=== PATIENT | female | born 1965 | race Caucasian/White ===

== ENCOUNTER 2017-08-28 12:32 | Day surgery (SDC) | payer OTHER ==
[~2017-08-28] VITALS: Ht 167.6 cm; Wt 67.0 kg
[~2017-08-28 12:32] MED LIST: LIDOCAINE HCL 1% PF 5 ML SYRINGE OTHER ONE; PROPOFOL 200 MG/20 ML AMP IV ONE
[2017-08-28] MEDS ORDERED: CHLORHEXIDINE GLUCONATE 2 % 1 PACK (2 CLOTHS) TOPICAL SCH (13:00)
[2017-08-28] MEDS ORDERED: SODIUM CHLORID 0.9% 500 ML IV PRN (13:00)
[2017-08-28] MEDS ORDERED: VANCOMYCIN 1000 MG/NS 250 ML IV SCH ×2 (13:00)
[2017-08-28] MEDS ORDERED: NO Heparin, Lovenox, Coumadin at least 12 hours prior to procedure. PRN (13:00)
[2017-08-28] MEDS ORDERED: CHLORHEXIDINE GLUCONATE 2 % 1 PACK (2 CLOTHS) TOPICAL PRN (13:00)
[2017-08-28] MEDS ORDERED: LORazepam 1 MG TAB SL SCH (13:00)
[2017-08-28] MEDS ORDERED: POVIDONE IODINE 5% (ANTISEPSIS KIT) 4 APPLICATIONS EACH NARE SCH (13:00)
[2017-08-28] MEDS ORDERED: INSULIN HUMAN REGULAR 1,000 UNITS/10 ML VIAL SQ PRN (13:00)
[2017-08-28] MEDS ORDERED: POVIDONE IODINE 5% (ANTISEPSIS KIT) 4 APPLICATIONS EACH NARE PRN (13:00)
[2017-08-28] MEDS ORDERED: Hold AM Insulin & AM Hypoglycemic medications in diabetic patients PRN (13:00)
[2017-08-28] MEDS ORDERED: LACTATED RINGER'S 1000 ML IV PRN (13:00)
[2017-08-28] MEDS ORDERED: NS 1000 ML IV SCH (13:00)
[2017-08-28] MEDS ORDERED: MUPIROCIN 2% OINT 1 APPLIC/GM SYR NASAL SCH (13:00)
[2017-08-28] MEDS ORDERED: METOPROLOL TARTRATE 25 MG TAB PO PRN (13:00)
[2017-08-28 13:19] VITALS: BP 117/82; PULSE 82; RESP 18; TEMP 97.9; O2SAT 96
[2017-08-28] MEDS ORDERED: LEVO88TA2 PO (13:38)
[2017-08-28] MEDS ORDERED: MONT10TA2 PO (13:38)
[2017-08-28] MEDS ORDERED: FLUT1INH INH (13:38)
[2017-08-28] MEDS ORDERED: PRED1 PO (13:38)
[2017-08-28 13:44] LABS: AUTOMATED NEUTROPHIL # 10.2 TH/MM3 (1.8-7.7); BASOPHIL % 0.2 % (0.0-2.0); HEMATOCRIT 40.1 % (35.0-46.0); HEMOGLOBIN 13.2 GM/DL (11.6-15.3); LYMPH % 11.6 % (9.0-44.0); LYMPHOCYTE # 1.4 TH/MM3 (1.0-4.8); MEAN CELL VOLUME 81.6 FL (80.0-100.0); MEAN CORPUSCULAR HGB CONC 33.1 % (32.0-36.0); MEAN PLATELET VOLUME 7.8 FL (7.0-11.0); MONO % 2.3 % (0.0-8.0); MONOCYTE # 0.3 TH/MM3 (0-0.9); NEUT % 85.9 % (16.0-70.0); PLATELET COUNT 293 TH/MM3 (150-450); RED BLOOD COUNT 4.91 MIL/MM3 (4.00-5.30); RED CELL DISTRIBUTION WIDTH 16.3 % (11.6-17.2); WHITE BLOOD COUNT 11.8 TH/MM3 (4.0-11.0)
[2017-08-28 13:45] LABS: INTERNATIONAL NORMALIZED RATIO 1.1 RATIO; PROTHROMBIN TIME - PATIENT 10.7 SEC (9.8-11.6)
[2017-08-28] MEDS ORDERED: CEFAZOLIN INJ 2,000 MG in SODIUM CHLORIDE 0.9% INJ 100 ML IV SCH (14:00)
[2017-08-28 14:07] LABS: BICARBONATE 25.9 MEQ/L (21.0-32.0); CALCIUM 9.2 MG/DL (8.5-10.1); CREATININE 0.85 MG/DL (0.50-1.00)
[2017-08-28] MEDS ORDERED: HEPARIN-NS/PF INJ 1,000 ML ONE (14:17)
[2017-08-28] MEDS ORDERED: DOXY100C PO (14:26)
[2017-08-28] MEDS ORDERED: PRED10 PO (14:27)
[2017-08-28] MEDS ORDERED: HEPARIN SODIUM - IV 10,000 UNITS/10 ML VIAL ONE (15:09)
[2017-08-28] MEDS ORDERED: MIDAZOLAM HCL 2 MG/2 ML VIAL ONE (15:31)
--- NOTE | 2017-08-28 15:50 | CATHPROC ---
Patient Name: RONY PRATER Study #: [id number] Initial MD: Mercedez Berry Date of : 1965 Study Date: 08/28/2017 Cardiac Catheterization Report 08/28/2017 3:50:00 PM Financial #: [id number] 1 of 9 Patient Name: RONY PRATER Study #: [id number] Initial MD: Mercedez Berry Date of : 1965 Study Date: 08/28/2017 Entire Case Report Patient Information Patient Name RONY PRATER Date of 1965 Age 51 years Financial # [id number] Gender F AlternateID Lab Number 6 Room Number DC07 Height (in) 66.0 Height (cm) 167.6 BSA 1.76 Weight (lbs) 148.1 Weight (kg) 67.3 Patient Address/Phone Number Home Address [facility] Home Phone Number [facility] [address] Study Information Study Number Admission Scheduled Start Study Start [id number] Aug 28 2017 12:32PM 08/28/2017 Aug 28 2017 1:26PM [place] Service Cardiac Pacer/ICD Admit Source Facility Department Other [facility] - [facility] Physician and Clinical Staff Initial Mercedez Gupta Quality Improvement Specialist Tara Cool,RT(R) TECH2 Quality Improvement Specialist Sommer Smith RN Other Anesthesia, MANAGER STORAGE Recorder Sommer Smith RN Scrub Rosaura Pantoja,SALT LIFTER TECH2 Procedures Performed Procedure Location (Site) Vessel Name Venogram RV Ventricle Wire insertion Fem Vein (right) Femoral Vein 08/28/2017 3:50:00 PM Financial #: [id number] 2 of 9 Patient Name: RONY PRATER Study #: [id number] Initial MD: Mercedez Berry Date of : 1965 Study Date: 08/28/2017 Equipment Time Risk Control Consultant Description Size Mfg Part Number Used/Scraped Miroi [id number] 13:27 SET, TUBING COOLFLOW * Used INC. *[id number] 13:26 COOK/PACER DILATOR SET (MICRA) FR8-12 Used *[id number] WIRE, GUIDE AMPLATZ STIFF [id number] 13:26 COOK/PACER 3MMJ Used 180CM *[id number] 13:26 MEDLINE INDUSTRIES PACK, CCL CUSTOM * Used *[id number] 13:26 MEDLINE PACER STARR, LIMB * 2530 *[id number] Used [id number] 13:26 NAMIC TUBING, HIGH PRESSURE 20" 20" Used *[id number] 13:26 NAMIC TUBING, HIGH PRESSURE 20" 20" Used *[id number] 13:26 NYCOMED OMNIPAQUE, 300 MG, 50ML 50ML [id number] Used 14:22 NYCOMED OMNIPAQUE, 300 MG, 50ML 50ML [id number] Used 14:22 NYCOMED OMNIPAQUE, 300 MG, 50ML 50ML [id number] Used SUTURE, 0 ETHIBOND [CT1] (CX21D), 8pk [id number] 13:26 ADEN MEDICAL BLANKET,WARM AIR CCL * Used *[id number] 13:26 VITATRON MEDTRONIC MONITOR, PACEMAKER\\ICD 59335G Used [id number] 13:28 VITATRON MEDTRONIC SHEATH, INTRODUCER (MICRA) Used *[id number] SYSTEM, TRANS-CATHETER [id number] 13:26 VITATRON MEDTRONIC Used PACING (MICRA) *[id number] Insurance Information Insurance Payor Private Health Insurance Third Republican Third Republican Number AETNA - HMO [facility] Labs Hgb (g/dl) Hct (%) RBC (MIL/MM3) WBC (l/cumm) Platelets (thousands) 11.60-17.00 35.00-51.00 4.00-5.90 4.00-11.00 150.00-450.00 13.0 40 13 4 293 Glucose (mg/dl) BUN (mg/dl) Creatinine (mg/dl) BUN:Creatinine (1:x) 74.00-106.00 7.00-18.00 0.50-1.30 10.00-20.00 110 11 0.8 13.8 Na (meq/l) K (meq/l) 136.00-145.00 3.50-5.10 138 3.8 08/28/2017 3:50:00 PM Financial #: [id number] 3 of 9 Patient Name: RONY PRATER Study #: [id number] Initial MD: Mercedez Berry Date of : 1965 Study Date: 08/28/2017 INR (PTT:PT) 0.90-1.10 1.1 Medication Medication Total Dose (Bolus/Oral) Medication Total Dosage/Unit 2% XYLOCAINE 100 mL HEPARIN 3000 units Medications (Bolus/Oral) Medication Time Given Dosage/Unit Administered By Reason 2% XYLOCAINE 08/28/2017 3:03:33 PM 50 mL Mercedez Berry 50 mL 2% XYLOCAINE given in lab by Mercedez Berry in Right Groin via Subcutaneous. Ordered by Chioma Berry. HEPARIN 08/28/2017 3:08:43 PM 3000 units Anesthesia, MANAGER STORAGE As per physicians bronson bal order 3000 units HEPARIN given in lab by Anesthesia, MANAGER STORAGE via Peripheral IV. Ordered by Mercedez Berry. Reas on: As per physicians verbal order. 2% XYLOCAINE 08/28/2017 3:28:02 PM 50 mL Mercedez Berry 50 mL 2% XYLOCAINE given in lab by Mercedez Berry in Left upper chest via Subcutaneous. Medication (Drip) Medication Time Given Dosage/Unit Concentration/Unit Diluent (ml) Solution ANCEF 08/28/2017 3:00:40 PM 2 g 2 g ANCEF given in lab by Anesthesia, MANAGER STORAGE via Peripheral IV. Ordered by Mercedez Berry. Reason: As pe r physicians verbal order. VANCOMYCIN DRIP 08/28/2017 3:00:00 PM 1 g 1 g VANCOMYCIN DRIP given in lab by Anesthesia, MANAGER STORAGE via Peripheral IV. Ordered by Mercedez Berry. Yecenia son: As per physicians verbal order. 08/28/2017 3:50:00 PM Financial #: [id number] 4 of 9 Patient Name: RONY PRATER Study #: [id number] Initial MD: Mercedez Berry Date of : 1965 Study Date: 08/28/2017 Initial Case Assessment Cardiovascular HR Rhythm NIBP Chest Pain 72 sr 114/68 0 Edema Present Skin color Skin None Normal Warm Dry Circulatory - Right Pulses Dorsalis Pedis 3 Scale (0,1,2,3,4,d) Circulatory - Left Pulses Dorsalis Pedis 3 Scale (0,1,2,3,4,d) Circulatory - Lower Extremities Color Lower Right Color Lower Left Normal Normal Neurological State Oriented to time-place- Alert Moves all extremities person Respiration - General Respiration Rate SpO2 (%) (B/min) 18 99 08/28/2017 3:50:00 PM Financial #: [id number] 5 of 9 Patient Name: RONY PRATER Study #: [id number] Initial MD: Mercedez Berry Date of : 1965 Study Date: 08/28/2017 Final Case Assessment Cardiovascular HR Rhythm NIBP Chest Pain 65 sr 132/75 0 Edema Present Skin color Skin None Normal Warm Dry Circulatory - Right Pulses Dorsalis Pedis 3 Scale (0,1,2,3,4,d) Circulatory - Left Pulses Dorsalis Pedis 3 Scale (0,1,2,3,4,d) Circulatory - Lower Extremities Color Lower Right Color Lower Left Normal Normal Neurological State Oriented to time-place- Alert Moves all extremities person Respiration - General Respiration Rate SpO2 (%) O2 (lpm) (B/min) 16 100 4 Chronological Log Time Study Chronological Log 14:05:10 Patient arrived via Bed. 14:05:11 Patient Name, D.O.B, / Armband Verified By R.N. 14:05:12 Consent signed by the physician and the patient and verified by the [facility] staff. 14:05:13 Pre-op and post- op instructions given; patient acknowledges understanding of instructions. 14:05:14 Verbal Stimulation=2 Physical Stimulation=2 Airway=2 Respiration=2 TOTAL=8. (0=absent, 1=li mited, 2=present) 14:05:15 Anesthesia at bedside. Assumes care of patient. Madeleine 14:05:45 Patient has been NPO for More than 6Hrs. 14:05:47 Skin Breakdown- none per pt 14:05:52 Patient Warmer Placed on the Table. 08/28/2017 3:50:00 PM Financial #: [id number] 6 of 9 Patient Name: RONY PRATER Study #: [id number] Initial MD: Mercedez Berry Date of : 1965 Study Date: 08/28/2017 14:05:53 Disposable Defibrillator Pads Placed On Patient. 14:05:55 Estefania Prominences Protected 14:05:56 A # 20 IV was noted in the Antecubital (right). Grade = 0 0.9ns kvo 14:05:57 A # 20 IV was noted in the Antecubital (left). Grade = 0 0.9ns kvo 14:06:20 History and physical on the chart or being dictated. 14:13:33 Table restraints applied according to hospital policy 14:15:53 Bilateral groins prepped with 2% chlorhexidine, and draped after a 3 minute waiting time. 14:17:17 Medtronic rep present. Assessment: Initial Case, HR=72 BPM, Rhythm=sr, FNMK=487/68 mmhg, Chest Pain=0, Edema=None, Col or=Normal, Skin = Warm, Dry Right Pulses: Jaziel Ped=3 Left Pulses: Jaziel Ped=3 14:19:00 Lower Right Extremities: Color=Normal Lower Left Extremities: Color=Normal Neurological: State=Alert, Ox3, BOWER Respiration: Resp=18 B/min, SpO2=99 % 14:24:37 Reference ECG taken 14:27:56 MD paged 14:59:50 MD arrived. 1 g VANCOMYCIN DRIP given in lab by Anesthesia, MANAGER STORAGE via Peripheral IV. Ordered by Eugenio Berry Reason: As per 15:00:00 physicians verbal order. 2 g ANCEF given in lab by Anesthesia, MANAGER STORAGE via Peripheral IV. Ordered by Mercedez Berry. Reason: As per physicians 15:00:40 verbal order. Time Out. Correct patient, procedure, procedure equipment, site and side verified with physicia n present. Time 15:03:04 concurred by MD, individual staff and MANAGER STORAGE. Time Out #2 - Consents verified, patient in correct position, all results are labled and displa yed, safety precautions 15:03:26 taken, antibiotics administered. Time out concurred by , individual staff and MANAGER STORAGE in procedu re 15:03:27 Case Start 15:03:33 50 mL 2% XYLOCAINE given in lab by Mercedez Berry in Right Groin via Subcutaneous. Ordered b Mercedez Barreto. 15:04:19 Vascular access was obtained in the Subclav. Vein (Rt). 15:04:22 Wire inserted 15:04:30 A WIRE, GUIDE AMPLATZ STIFF 180CM 3MMJ was inserted via Fem Vein (right). 15:07:14 Figure 8 knot using Ethibond placed by MD to RFV. 3000 units HEPARIN given in lab by Anesthesia, MANAGER STORAGE via Peripheral IV. Ordered by Mercedez Berry . Reason: As per 15:08:43 physicians verbal order. 15:10:21 A DILATOR SET (MICRA) FR8-12 was advanced into the Fem Vein (right) using the Modified Seld gayathri technique. 8 15:10:38 A DILATOR SET (MICRA) FR8-12 was advanced into the Fem Vein (right) using the Modified Seld gayathri technique. 12 15:10:50 A DILATOR SET (MICRA) FR8-12 was advanced into the Fem Vein (right) using the Modified Seld gayathri technique. 16 15:11:00 A DILATOR SET (MICRA) FR8-12 was advanced into the Fem Vein (right) using the Modified Seld gayathri technique. 20 15:11:38 A SHEATH, INTRODUCER (MICRA) was advanced into the Fem Vein (right) using the Modified Seld gayathri technique. 15:11:50 Wire out 15:13:04 Dilator and wire removed. Heparin gtt attached to introducer. 15:13:45 Micra device prepped and set up. 08/28/2017 3:50:00 PM Financial #: [id number] 7 of 9 Patient Name: RONY PRATER Study #: [id number] Initial MD: Mercedez Berry Date of : 1965 Study Date: 08/28/2017 15:14:26 A SYSTEM, TRANS-CATHETER PACING (MICRA) was advanced via RFV and placed in the RV. 15:15:55 The RV was manually injected with 10 cc's of contrast. Contrast used to visualize septal pl acement. 15:16:23 Micra deployed and placement verified under fluoroscopy 15:17:49 The RV/Micra impedance and threshold being tested. 15:20:14 Delivery system and introducer removed from RFV. 15:24:11 [address] 20 minutes pressure held by TF. Figure 8 knot to be removed at 23:1 5 by . 15:24:41 DOCU called. Spoke to Dora 15:24:57 Bedside Report will be given. 15:25:05 Implant Procedure was performed. 15:25:12 A PPM Implant . (Single) Micra 15:25:31 Left Upper Chest Prepped Times Two. 15:28:02 50 mL 2% XYLOCAINE given in lab by Mercedez Berry in Left upper chest via Subcutaneous. 15:28:47 Surgical Incision Made. 15:29:00 Loop Recorder removed by . 15:38:21 Implantable Device card placed in patient's chart. 15:45:18 Pressure held by . Steri-strips and a sterile dressing applied to Left upper chest incisi on site. Site WNL. Assessment: Final Case, HR=65 BPM, Rhythm=sr, MGYU=675/75 mmhg, Chest Pain=0, Edema=None, Color =Normal, Skin = Warm, Dry Right Pulses: Jaziel Ped=3 Left Pulses: Jaziel Ped=3 15:48:09 Lower Right Extremities: Color=Normal Lower Left Extremities: Color=Normal Neurological: State=Alert, Ox3, BOWER Respiration: Resp=16 B/min, ZpW4=015 %, O2=4 lpm 15:48:26 Sterile dressing applied to site right groin. Site WNL. 15:48:40 Case End 15:52:39 Defibrillator and ground pads removed. Skin intact. 15:58:44 [facility] - Contrast Media Used In Study Contrast Total Opened (mL) Total Used (mL) Total Wasted (mL) Omnipaque 100 10 90 End Study - Maximum Contrast Load Max Contrast Load (mL) 420.7 08/28/2017 3:50:00 PM Financial #: [id number] 8 of 9 Patient Name: RONY PRATER Study #: [id number] Initial MD: Mercedez Berry Date of : 1965 Study Date: 08/28/2017 End Study - Radiation Exposure Fluoro Time (minutes) 1.4 End Study - Sheaths Sheaths Pulled By Sheath Hold Time (min) Rosaura Pantoja 25 End Study - Patient Disposition Complications Transferred To Interventional Outcome No Telemetry Bed successful 08/28/2017 3:50:00 PM Financial #: [id number]
[2017-08-28] MEDS ORDERED: ATROPINE SULFATE 1 MG/ML VIAL IV PUSH PRN (16:00)
[2017-08-28] MEDS ORDERED: SODIUM CHLOR 0.9% 250 ML INJ 250 ML IV PRN (16:00)
[2017-08-28] MEDS ORDERED: oxyCODONE/ACETAMINOPHEN 5 MG/325 MG TAB PO PRN ×2 (16:00)
[2017-08-28] MEDS ORDERED: ONDANSETRON HCL 4 MG/2 ML VIAL IV PUSH PRN (16:00)
[2017-08-28] MEDS ORDERED: LORazepam 2 MG/ML VIAL IV PUSH PRN (16:00)
[2017-08-28] MEDS ORDERED: BACITRACIN OINT 0.9 GM PKT TOP ONE (16:00)
[2017-08-28] MEDS ORDERED: LIDOCAINE HCL 1% 50 ML VIAL INFIL PRN (16:00)
[2017-08-28 19:00] VITALS: BP 113/65; PULSE 73; PULSE 78; RESP 14; TEMP 98.1; O2SAT 97
[2017-08-28 20:00] VITALS: PULSE 74
[2017-08-28 21:00] VITALS: PULSE 66
[2017-08-28] MEDS ORDERED: MONTELUKAST SODIUM 10 MG TAB PO SCH (21:00)
[2017-08-28] MEDS: DOXYCYCLINE HYCLATE 100 MG CAP PO SCH (21:34)
[2017-08-28 22:00] VITALS: PULSE 64
[2017-08-28 23:00] VITALS: BP 121/84; PULSE 65; PULSE 74; RESP 14; TEMP 98.9; O2SAT 97
[2017-08-29] VITALS (10 sets, daily range): BP systolic 100–111; BP diastolic 63–64; PULSE 60–77; RESP 16–18; TEMP 98.4–98.5; O2SAT 94–96
[2017-08-29] MEDS ORDERED: LEVOTHYROXINE SODIUM 88 MCG TAB PO SCH (06:00)
[2017-08-29] MEDS ORDERED: predniSONE 10 MG TAB PO SCH (09:00)
[2017-08-29] MEDS ORDERED: FLUTICASONE 100 MCG/VILANTEROL 25 MCG INHALER INH SCH (09:00)
[2017-08-29] MEDS: DOXYCYCLINE HYCLATE 100 MG CAP PO SCH (09:04)
--- NOTE | 2017-08-29 09:14 | PD.CARD.PN ---
Subjective Subjective Remarks No complaints. Objective Medications Current Medications Medications (Trade) Dose Ordered Sig/Vasu Route Start Time Stop Time Status Last Admin Miscellaneous Information Hold AM Insulin & ... UNSCH PRN .XX 08/28/17 13:00 09/01/17 12:59 Miscellaneous Information NO Heparin, Loven... UNSCH PRN .XX 08/28/17 13:00 09/01/17 12:59 Sodium Chloride 1,000 ml @ 30 mls/hr Q24H IV 08/28/17 13:00 Cefazolin Sodium 2000 mg/Sodium Chloride 120 ml @ 240 mls/hr PLATING OPERATOR IV 08/28/17 14:00 08/31/17 13:59 08/28/17 15:00 Vancomycin HCl 1000 mg/Sodium Chloride 250 ml @ 250 mls/hr PLATING OPERATOR IV 08/28/17 13:00 08/31/17 12:59 08/28/17 15:00 (Ativan) 1 mg PLATING OPERATOR SL 08/28/17 13:00 08/31/17 12:59 (Betadine 5% Antisepsis Kit) 2 applic PLATING OPERATOR EACH NARE 08/28/17 13:00 08/31/17 12:59 08/28/17 13:34 (Bactroban Nasal 2% Oint) 1 applic PLATING OPERATOR NASAL 08/28/17 13:00 08/31/17 12:59 (Chlorhexidine 2% Cloth) 3 pack PLATING OPERATOR TOPICAL 08/28/17 13:00 08/31/17 12:59 08/28/17 13:34 Lactated Ringer's 1,000 ml @ 30 mls/hr Q24H PRN IV 08/28/17 13:00 08/31/17 12:59 Sodium Chloride 500 ml @ 30 mls/hr [id number] PRN IV 08/28/17 13:00 08/31/17 12:59 (Lopressor) 25 mg PLATING OPERATOR PRN PO 08/28/17 13:00 08/31/17 12:59 (Betadine 5% Antisepsis Kit) 1 applic PLATING OPERATOR PRN EACH NARE 08/28/17 13:00 08/31/17 12:59 (Chlorhexidine 2% Cloth) 3 pack PLATING OPERATOR PRN TOPICAL 08/28/17 13:00 08/31/17 12:59 (NovoLIN R INJ) See Protocol Table ... PLATING OPERATOR PRN SQ 08/28/17 13:00 08/31/17 12:59 (Percocet 5-325 Mg) 1 tab Q4H PRN PO 08/28/17 16:00 08/28/17 21:33 (Percocet 5-325 Mg) 2 tab Q4H PRN PO 08/28/17 16:00 (Ativan Inj) 0.5 mg UNSCH PRN IV PUSH 08/28/17 16:00 08/29/17 15:59 (Atropine Inj) 0.5 mg UNSCH PRN IV PUSH 08/28/17 16:00 Sodium Chloride 250 ml @ 500 mls/hr ONCE PRN IV 08/28/17 16:00 08/29/17 15:59 (Zofran Inj) 4 mg Q4H PRN IV PUSH 08/28/17 16:00 08/29/17 00:16 (Xylocaine 1% Inj (50 ml)) 10 ml UNSCH PRN INFIL 08/28/17 16:00 08/29/17 15:59 (Vibramycin) 100 mg BID PO 08/28/17 21:00 08/29/17 09:04 (Breo Ellipta 100-25 Inh) 1 puff DAILY INH 08/29/17 09:00 (Synthroid) 88 mcg DAILY@0600 PO 08/29/17 06:00 08/29/17 05:53 (Singulair) 10 mg HS PO 08/28/17 21:00 08/28/17 21:34 (Deltasone) 40 mg DAILY PO 08/29/17 09:00 08/29/17 09:05 Vital Signs / I&O Vital Signs Date Time Temp Pulse Resp B/P (MAP) Pulse Ox O2 Delivery O2 Flow Rate FiO2 08/29/17 09:00 77 08/29/17 08:00 77 08/29/17 07:00 62 08/29/17 07:00 98.4 76 18 100/64 (76) 96 08/29/17 06:00 68 08/29/17 05:00 68 08/29/17 04:00 98.5 66 16 111/63 (79) 94 08/29/17 04:00 68 08/29/17 03:00 65 08/29/17 02:00 62 08/29/17 01:00 62 08/29/17 00:00 60 08/28/17 23:00 98.9 74 14 121/84 (96) 97 08/28/17 23:00 65 08/28/17 22:00 64 08/28/17 21:00 66 08/28/17 20:00 74 08/28/17 19:00 98.1 73 14 113/65 (81) 97 08/28/17 19:00 78 08/28/17 16:21 99 Room Air 08/28/17 13:19 97.9 82 18 117/82 (94) 96 I/O 08/28/17 08/28/17 08/28/17 08/29/17 08/29/17 08/29/17 07:00 15:00 23:00 07:00 15:00 23:00 Intake Total 370 ml 600 ml Output Total 400 ml Balance 370 ml 200 ml Intake Oral 600 ml IV Total 370 ml Output Urine Total 400 ml Physical Exam GENERAL: This is a well-nourished, well-developed patient, in no apparent distress. CARDIOVASCULAR: Regular rate and rhythm without murmurs, gallops, or rubs. RESPIRATORY: Clear to auscultation. Breath sounds equal bilaterally. No wheezes , rales, or rhonchi. GASTROINTESTINAL: Abdomen soft, non-tender, nondistended. Normal active bowel sounds MUSCULOSKELETAL: Extremities without clubbing, cyanosis, or edema. NEURO: Alert & Oriented x4 to person, place, time, situation. Moves all ext x4 Laboratory Laboratory Tests Test 08/28/17 13:05 White Blood Count 11.8 TH/MM3 Red Blood Count 4.91 MIL/MM3 Hemoglobin 13.2 GM/DL Hematocrit 40.1 % Mean Corpuscular Volume 81.6 FL Mean Corpuscular Hemoglobin 27.0 PG Mean Corpuscular Hemoglobin Concent 33.1 % Red Cell Distribution Width 16.3 % Platelet Count 293 TH/MM3 Mean Platelet Volume 7.8 FL Neutrophils (%) (Auto) 85.9 % Lymphocytes (%) (Auto) 11.6 % Monocytes (%) (Auto) 2.3 % Eosinophils (%) (Auto) 0.0 % Basophils (%) (Auto) 0.2 % Neutrophils # (Auto) 10.2 TH/MM3 Lymphocytes # (Auto) 1.4 TH/MM3 Monocytes # (Auto) 0.3 TH/MM3 Eosinophils # (Auto) 0.0 TH/MM3 Basophils # (Auto) 0.0 TH/MM3 CBC Comment DIFF FINAL Differential Comment Prothrombin Time 10.7 SEC Prothromb Time International Ratio 1.1 RATIO Activated Partial Thromboplast Time 27.5 SEC Blood Urea Nitrogen 11 MG/DL Creatinine 0.85 MG/DL Random Glucose 110 MG/DL Calcium Level 9.2 MG/DL Sodium Level 138 MEQ/L Potassium Level 3.8 MEQ/L Chloride Level 101 MEQ/L Carbon Dioxide Level 25.9 MEQ/L Anion Gap 11 MEQ/L Estimat Glomerular Filtration Rate 70 ML/MIN Assessment and Plan Assessment and Plan s/p mirca pacer, no complaints. ok to d/c home. Roni Thapa MD Aug 29, 2017 09:14
--- NOTE | 2017-08-29 13:44 | EKG ---
Date Performed: 08/28/2017 Time Performed: 16:51:44 PTAGE: 51 years EKG: Sinus rhythm with 1st degree A-V block. Left bundle branch block Since previous tracing, no significant change no ramses Abnormal ECG PREVIOUS TRACING : 08/28/2017 13.49 DOCTOR: Harman Castellanos Interpretating Date/Time 08/29/2017 13:43:01
--- NOTE | 2017-08-29 13:44 | EKG ---
Date Performed: 08/28/2017 Time Performed: 13:49:26 PTAGE: 51 years EKG: Sinus rhythm with 1st degree A-V block. Left bundle branch block Abnormal ECG NO PREVIOUS TRACING DOCTOR: Harman Castellanos Interpretating Date/Time 08/29/2017 13:42:31
--- NOTE | 2017-08-29 19:15 | MP ---
cc: GAY CARLOS M.D. DATE OF SURGERY: 08/29/2017. OPERATIVE PROCEDURE PERFORMED: A leadless permanent pacemaker insertion and loop recorder removal. INDICATIONS FOR THE PROCEDURE: Mrs. Giordano is a 51-year-old female with syncopal episodes with rate drop responsive. She had a junctional rhythm and bradycardia with previous loop recorder insertion who will undergo permanent pacemaker implantation and then loop removal. The risks, the nature and the benefits of the procedure were clearly stated to her. The risks include pneumothorax, cardiac perforation, stroke, inguinal hematoma and even . The patient understood and agreed to proceed. DESCRIPTION OF THE PROCEDURE IN DETAIL: After written informed consent was obtained, the patient was brought to the EP lab where she was prepped and draped in the usual sterile fashion. Conscious sedation was initiated and maintained throughout the procedure by the anesthesiologist. Once sedation was verified, the right inguinal area was anesthetized with 2% Xylocaine. Using modified Seldinger technique, the right femoral vein was cannulated on one occasion and a stiff Amplatz was advanced and placed all the way to the superior vena cava. Then a less than a centimeter incision was made. Then the area was progressively dilated using the 8, 12, 16 and 20 [place] dilators. Then the Micra System was advanced over the wire. Then the dilator and the wire were removed. The Micra System lead was advanced to the sheath. The lead was delivered and placed at the septal area. After adequate pacing and sensing thresholds were obtained in multiple view, I decided to release the Micra Pacemaker. A 2-0 Ethibond was placed at the exit point to prevent bleeding. Before that, the patient received 3000 units of heparin. The sheath and the delivery system were removed. Hemostasis was performed. An 2-0 Ethibond suture was tied to prevent bleeding. The suture will be removed in the next 8 hours. At that point, I decided to proceed with loop recorder removal. The left parasternal area was anesthetized with 2% xylocaine. Using a #11 blade scalpel, less than a centimeter incision was made. After multiple manipulations, the loop recorder was removed. I did use blunt dissection. Then the borders were reapproximated using Dermabond and Steri-Strips. No incident report. The patient tolerated the procedure. Blood loss was minimal. 1. EXPLANTED HARDWARE: The explanted loop recorder is a HSTYLE serial [id number]. 2. IMPLANTED HARDWARE: The implanted Micra Leadless Permanent Pacemaker is a HSTYLE model number [id number], serial number [id number]. 3. THRESHOLDS: The right ventricular pacing and sensing in bipolar mode was 0.5 volts at 0.24 milliseconds. Lead impedance was 590 Ohms. Sensing was 5 millivolts. 4. SETTINGS: The device was set at VVI50. This is only therefore rate drop response. CONCLUSIONS: Successful leadless permanent pacemaker insertion and successful loop recorder removal. COMMENTS AND RECOMMENDATIONS: The patient is going to be transferred to the recovery room. She will be observed and when stable will be discharged home in the morning. MD JV Obregon/CANDELARIA /3:59 PM /6:56 PM
== END 2017-08-29 10:20 | disposition home or self-care (01) ==
LOC: HDOC 12:32 → HDIC 12:33 → HCIS 17:41 → HDOC 08-29 10:20
PROVIDERS: ATTEND Internal Medicine Interventional Cardiology
DX: Z45.010 Encounter for checking and testing of cardiac pacemaker pulse generator [battery] (principal); I44.0 Atrioventricular block, first degree; R00.1 Bradycardia, unspecified; I49.9 Cardiac arrhythmia, unspecified; E03.9 Hypothyroidism, unspecified; J43.8 Other emphysema; R53.83 Other fatigue; R42 Dizziness and giddiness; Z79.899 Other long term (current) drug therapy; Z87.891 Personal history of nicotine dependence; Z82.49 Family history of ischemic heart disease and other diseases of the circulatory system; Z00.6 Encounter for examination for normal comparison and control in clinical research program
CPT/HCPCS: 00530; 0387T; 80048; 85025; 85610; 85730; 86850; 86900; 86901; 93005; C1786; J0690; J1644; J2250; J2405; J3010; J3370; J7050; J7512